=== PATIENT | male | born 1990 | race Caucasian/White ===

== ENCOUNTER 2025-04-19 11:36 | Outpatient (CLI) | payer OTHER, SELFPAY | END 2025-04-19 11:37 | disposition home or self-care (01) | PROVIDERS: Visit Provider Family Medicine | DX: R63.4 Abnormal weight loss (principal); R42 Dizziness and giddiness; Z13.6 Encounter for screening for cardiovascular disorders; Z83.3 Family history of diabetes mellitus | CPT/HCPCS: 80053; 80061; 84443 ==